=== PATIENT | male | born 1985 | race Caucasian/White ===

== ENCOUNTER 2017-04-23 23:17 | Emergency (ER) | payer MEDICAID ==
[~2017-04-23] VITALS: Ht 180.3 cm; Wt 81.6 kg
[2017-04-23 23:21] VITALS: BP_SYST 124
[2017-04-23] MEDS ORDERED: KETOROLAC TROMETHAMINE 60 MG/2 ML VIAL IM ONE (23:45)
[2017-04-23] MEDS ORDERED: LORazepam 2 MG/ML VIAL (FOR ER USE) IM ONE (23:45)
[2017-04-24 00:25] VITALS: BP_SYST 121
== END 2017-04-24 00:25 | disposition home or self-care (01) ==
LOC: SED 23:17
DX: M54.2 Cervicalgia (principal); R55 Syncope and collapse; R11.2 Nausea with vomiting, unspecified; R06.02 Shortness of breath; Y04.2XXA Assault by strike against or bumped into by another person, initial encounter; Y93.89 Activity, other specified; Y92.89 Other specified places as the place of occurrence of the external cause; Y99.8 Other external cause status
CPT/HCPCS: 96372; 99283; J1885; J2060